=== PATIENT | male | born 1980 | race Caucasian/White ===

== ENCOUNTER → 2021-04-13 | Outpatient (REF) | LOC: M PLAIMG 07:02 | PROVIDERS: ATTEND Internal Medicine | DX: M19.90 Unspecified osteoarthritis, unspecified site (principal) ==

== ENCOUNTER 2024-04-15 21:10 | Emergency (ER) | payer OTHER ==
[~2024-04-15] VITALS: Ht 175.3 cm; Wt 105.8 kg
[2024-04-15] MEDS: LIDOCAINE 2% MDV 20ML VIAL SC ONE (23:10)
[2024-04-15 23:57] VITALS: BP 131/83; TEMP 97.4; O2SAT 95
== END 2024-04-15 23:58 | disposition home or self-care (01) ==
LOC: M ED 21:10
DX: S61.213A Laceration without foreign body of left middle finger without damage to nail, initial encounter (principal); Y92.019 Unspecified place in single-family (private) house as the place of occurrence of the external cause; Y93.9 Activity, unspecified; Y99.9 Unspecified external cause status; F43.10 Post-traumatic stress disorder, unspecified

== ENCOUNTER 2024-11-06 20:27 | Inpatient (IN) | payer OTHER ==
[~2024-11-06] VITALS: Ht 175.3 cm; Wt 95.2 kg
[2024-11-06 21:12] LABS: PLATELET COUNT, AUTOMATED 243 10^3/uL (150-450)
[2024-11-06 21:36] LABS: AMPHETAMINES LEVEL URINE NEGATIVE (NEGATIVE); BARBITURATES URINE NEGATIVE (NEGATIVE); BENZODIAZEPINES URINE NEGATIVE (NEGATIVE); COCAINE METABOLITE URINE NEGATIVE (NEGATIVE); METHADONE URINE NEGATIVE (NEGATIVE); OPIATES URINE NEGATIVE (NEGATIVE); PHENCYCLIDINE URINE NEGATIVE (NEGATIVE)
[2024-11-06 21:38] LABS: ETHYL ALCOHOL (ETHANOL) < 0.003 % (0.000-0.010)
[2024-11-06 21:39] LABS: SALICYLATE LEVEL < 3.0 MG/DL (<30)
[2024-11-06 21:40] LABS: ALT/SGPT 26 U/L (7.0-40); AST/SGOT 57 U/L (<34); CALCIUM LEVEL 9.5 MG/DL (8.5-10.1); CARBON DIOXIDE LEVEL 20 MMOL/L (20-31); CHLORIDE LEVEL 105 MMOL/L (98-107); CREATININE FOR GFR 0.87 MG/DL (0.70-1.30); GLOMERULAR FILTRATION RATE > 90.0 (>60); POTASSIUM SERUM 3.8 MMOL/L (3.5-5.1); SODIUM LEVEL 142 MMOL/L (136-145)
[2024-11-06 21:47] LABS: CANNABINOIDS URINE POSITIVE (NEGATIVE)
[2024-11-06 23:21] LABS: KETONE, URINE AUTO RFX 2+ mg/dL (NEGATIVE); LEUKOCYTE ESTERASE UR AUTO RFX NEGATIVE (NEGATIVE); MUCUS, URINE RFX SMALL (NEGATIVE); NITRITE, URINE AUTO RFX NEGATIVE (NEGATIVE); RBC, URINE AUTO RFX 0 /HPF (0-3); SQUAM EPITHELIAL CELL UR AURFX 0 /HPF (0-6); WBC, URINE AUTO RFX 1 /HPF (0-3)
[2024-11-06] MEDS ORDERED: LORazepam 1 MG TAB PO ONE (23:55)
[2024-11-07] MEDS: HALOPERIDOL LACTATE 5 MG/ML VIAL IM ONE (00:33)
[2024-11-07] MEDS ORDERED: D 1010002 PO (02:34)
[2024-11-07] MEDS ORDERED: CALC500C16 PO (02:34)
[2024-11-07] MEDS ORDERED: SUCR1ORA PO (02:34)
[2024-11-07] MEDS ORDERED: FLUT1BLS2 IH (02:34)
[2024-11-07] MEDS ORDERED: FLUT15.820 NARES (02:34)
[2024-11-07] MEDS ORDERED: ALBU8.5H INH (02:34)
[2024-11-07] MEDS ORDERED: HYDR50TA70 PO (02:34)
[2024-11-07] MEDS ORDERED: ZOLO100T PO (02:34)
[2024-11-07] MEDS ORDERED: CLON-412 PO (02:34)
[2024-11-07] MEDS ORDERED: GNP250TA9 PO (02:34)
[2024-11-07] MEDS ORDERED: FAMO20TA PO (02:34)
[2024-11-07] MEDS ORDERED: HOME MED LIST COMPLETE! XX SCH (02:35)
[2024-11-07] MEDS ORDERED: SUCRALFATE SUSP 1GM/10ML UD PO PRN (11:10)
[2024-11-07] MEDS ORDERED: CALCIUM CARBONATE 500 MG CHEW U/D PO PRN (11:10)
[2024-11-07] MEDS ORDERED: ALBUTEROL 90 MCG/ACT 8 GM HFA INHALER INH PRN (11:10)
[2024-11-07] MEDS ORDERED: MAALOX 30 ML SUSP *UDC PO PRN (11:20)
[2024-11-07] MEDS ORDERED: IBUPROFEN 400 MG TAB PO PRN (11:20)
[2024-11-07] MEDS ORDERED: OLANZapine 5 MG TAB PO PRN (11:20)
[2024-11-07] MEDS ORDERED: ACETAMINOPHEN 325 MG TAB PO PRN (11:20)
[2024-11-07] MEDS ORDERED: MOM 30 ML SUSPENSION UDC PO PRN (11:20)
[2024-11-07 14:44] VITALS: BP 141/81; TEMP 96.9; O2SAT 95
[2024-11-07] MEDS: FAMOTIDINE 20 MG TAB PO SCH (20:26)
[2024-11-08 06:36] VITALS: BP 140/88; TEMP 98.5; O2SAT 98
[2024-11-08] MEDS: SERTRALINE 100 MG TAB PO SCH (09:12)
[2024-11-08] MEDS: FLUTICASONE PROPIONATE 0.05% NASAL SPRAY 16 GM NARES SCH (12:39)
[2024-11-08] MEDS: NICOTINE POLACRILEX 2 MG GUM PO PRN (12:39)
[2024-11-08 16:33] VITALS: BP 135/84; TEMP 97; O2SAT 97
[2024-11-08] MEDS: traZODone 50 MG TAB PO PRN (20:10)
[2024-11-09 06:20] VITALS: BP 144/87; TEMP 97.1; O2SAT 95
[2024-11-09] MEDS: SERTRALINE HCL 50 MG TAB PO SCH (08:07)
[2024-11-09 15:18] VITALS: BP 140/78; TEMP 97.3; O2SAT 96
[2024-11-09] MEDS: PRAZOSIN 1 MG CAP PO SCH (20:06)
[2024-11-10 06:28] VITALS: BP 133/90; TEMP 97.1; O2SAT 96
[2024-11-10 14:37] VITALS: BP 124/80; TEMP 97.8; O2SAT 96
[2024-11-11 06:29] VITALS: BP 122/74; TEMP 96.8; O2SAT 96
[2024-11-11 15:03] VITALS: BP 139/78; TEMP 97.9; O2SAT 95
[2024-11-11 20:05] VITALS: BP 141/72
[2024-11-11] MEDS: traZODone 50 MG TAB PO SCH (20:05)
[2024-11-12] MEDS ORDERED: ABIL1TAB11 PO (04:10)
[2024-11-12] MEDS ORDERED: TRAZ-252 PO (04:10)
[2024-11-12] MEDS ORDERED: SERT50TA29 PO (04:10)
[2024-11-12] MEDS ORDERED: PRAZ1CAP PO (04:10)
[2024-11-12 06:28] VITALS: BP 133/84; TEMP 97.2; O2SAT 97
== END 2024-11-12 13:07 | disposition home or self-care (01) | DRG 880 ==
LOC: M ED 20:27 → M ED INP 11-07 11:20 → M PSY 11-07 13:59
PROVIDERS: ADMIT Student in an Organized Health Care Education/Training Program; ATTEND Internal Medicine
DX: F41.1 Generalized anxiety disorder (principal); F33.1 Major depressive disorder, recurrent, moderate; F43.11 Post-traumatic stress disorder, acute; F12.10 Cannabis abuse, uncomplicated; Z79.899 Other long term (current) drug therapy

== ENCOUNTER → 2024-12-01 | Outpatient (CLI) | payer OTHER ==
[~2024-12-01] MED LIST: ABIL1TAB11 PO; ALBU8.5H INH; CALC500C16 PO; CLON-412 PO; D 1010002 PO; FAMO20TA PO; FLUT15.820 NARES; FLUT1BLS2 IH; GNP250TA9 PO; HYDR50TA70 PO; PRAZ1CAP PO; SERT50TA29 PO; SUCR1ORA PO; TRAZ-252 PO; ZOLO100T PO
== END ==
LOC: M RAD 10:40
PROVIDERS: ATTEND Neurological Surgery
DX: M54.16 Radiculopathy, lumbar region (principal); M48.02 Spinal stenosis, cervical region